=== PATIENT | female | born 1975 | race Caucasian/White ===

== ENCOUNTER 2021-04-22 02:46 | Inpatient (IN) | payer OTHER ==
[2021-04-22] MEDS ORDERED: Acetaminophen 325 MG Tab PO PRN ×2 (04:04→07:41)
[2021-04-22] MEDS ORDERED: Sodium Chloride 0.9% 10 ML Syringe FLUSH PRN (04:05)
[2021-04-22] MEDS ORDERED: Dexamethasone 4 MG/ML SDV IVPUSH SCH (04:15)
[2021-04-22] MEDS ORDERED: Potassium Chloride 20 MEQ Tab.ER PO ONE ×4 (04:22→17:00)
[2021-04-22] MEDS ORDERED: LORazepam 2 MG/ML SDV IVPUSH ONE (06:25)
[2021-04-22] MEDS ORDERED: Ondansetron 4 MG/2 ML SDV IV PRN (07:41)
[2021-04-22] MEDS ORDERED: Bisacodyl 5 MG Tab PO PRN (07:41)
[2021-04-22] MEDS ORDERED: Docusate Sodium 100 MG Cap PO PRN (07:41)
[2021-04-22] MEDS ORDERED: Acetaminophen/HYDROcodone 325-5 MG Tab PO PRN (07:41)
[2021-04-22] MEDS ORDERED: Morphine 2 MG/ML SYRINGE IVPUSH PRN (07:41)
[2021-04-22] MEDS ORDERED: Ondansetron 4 MG Tab.DIS PO PRN (07:41)
[2021-04-22] MEDS ORDERED: Benzonatate 100 MG Cap PO PRN (07:41)
[2021-04-22] MEDS ORDERED: Codeine/guaiFENesin 10-100 MG/5 ML Syrup 5 ML Cup PO PRN (07:41)
[2021-04-22] MEDS: Mupirocin Oint 22 GM Tube TOP SCH ×3 (08:34→21:56)
[2021-04-22] MEDS: Enoxaparin 40 MG/0.4 ML Syringe SUBCUT SCH (08:34)
[2021-04-22] MEDS ORDERED: REMDESIVIR 200 MG in Sodium Chloride 0.9% 250 ML IV ONE (17:00)
[2021-04-22] MEDS ORDERED: Melatonin 3 MG Tab PO PRN (22:19)
[2021-04-22] MEDS: LORazepam 2 MG/ML SDV IV PRN (22:34)
[2021-04-23] MEDS ORDERED: Potassium Chloride 20 MEQ Tab.ER PO ONE (09:10)
[2021-04-23] MEDS: Enoxaparin 40 MG/0.4 ML Syringe SUBCUT SCH (09:24)
[2021-04-23] MEDS: Mupirocin Oint 22 GM Tube TOP SCH ×3 (09:24→21:29)
[2021-04-23] MEDS: Dexamethasone 4 MG/ML SDV IVPUSH SCH (09:24)
[2021-04-23] MEDS: REMDESIVIR 100 MG in Sodium Chloride 0.9% 100 ML IV SCH (16:09)
[2021-04-23] MEDS: Levofloxacin/Dextrose 5%-Water 750 MG in Premix Bag 1 BAG IV SCH (21:22)
[2021-04-24] MEDS: Mupirocin Oint 22 GM Tube TOP SCH ×3 (08:17→20:08)
[2021-04-24] MEDS: LORazepam 2 MG/ML SDV IV PRN ×2 (08:24→13:29)
[2021-04-24] MEDS: Enoxaparin 40 MG/0.4 ML Syringe SUBCUT SCH (08:26)
[2021-04-24] MEDS: Dexamethasone 4 MG/ML SDV IVPUSH SCH (08:26)
[2021-04-24] MEDS ORDERED: Potassium Chloride 20 MEQ Tab.ER PO ONE ×3 (09:00→17:07)
[2021-04-24] MEDS: REMDESIVIR 100 MG in Sodium Chloride 0.9% 100 ML IV SCH (16:05)
[2021-04-24] MEDS: Levofloxacin/Dextrose 5%-Water 750 MG in Premix Bag 1 BAG IV SCH (20:07)
[2021-04-25] MEDS: LORazepam 2 MG/ML SDV IV PRN ×2 (06:27→23:17)
[2021-04-25] MEDS: Enoxaparin 80 MG/0.8 ML Syringe SUBCUT SCH ×2 (09:04→21:30)
[2021-04-25] MEDS: Dexamethasone 4 MG/ML SDV IVPUSH SCH (09:04)
[2021-04-25] MEDS: Mupirocin Oint 22 GM Tube TOP SCH ×3 (09:04→21:29)
[2021-04-25] MEDS ORDERED: Sodium Chloride 0.65% Nasal Spray 45 ML Bottle NAS PRN (09:21)
[2021-04-25] MEDS: REMDESIVIR 100 MG in Sodium Chloride 0.9% 100 ML IV SCH (17:22)
[2021-04-25] MEDS: Levofloxacin/Dextrose 5%-Water 750 MG in Premix Bag 1 BAG IV SCH (19:43)
[2021-04-26] MEDS: Enoxaparin 80 MG/0.8 ML Syringe SUBCUT SCH ×2 (08:59→20:17)
[2021-04-26] MEDS: Dexamethasone 4 MG/ML SDV IVPUSH SCH (08:59)
[2021-04-26] MEDS: Mupirocin Oint 22 GM Tube TOP SCH ×3 (08:59→20:17)
[2021-04-26] MEDS: REMDESIVIR 100 MG in Sodium Chloride 0.9% 100 ML IV SCH (18:00)
[2021-04-26] MEDS: Levofloxacin/Dextrose 5%-Water 750 MG in Premix Bag 1 BAG IV SCH (20:17)
[2021-04-27] MEDS: LORazepam 2 MG/ML SDV IV PRN (02:23)
[2021-04-27] MEDS: Dexamethasone 4 MG/ML SDV IVPUSH SCH (08:55)
[2021-04-27] MEDS: Enoxaparin 80 MG/0.8 ML Syringe SUBCUT SCH (08:55)
[2021-04-27] MEDS: Mupirocin Oint 22 GM Tube TOP SCH ×3 (12:24→21:20)
[2021-04-27] MEDS: Rivaroxaban 10 MG Tab PO SCH (18:27)
[2021-04-27] MEDS: Levofloxacin/Dextrose 5%-Water 750 MG in Premix Bag 1 BAG IV SCH (20:40)
[2021-04-27] MEDS ORDERED: Enoxaparin 40 MG/0.4 ML Syringe SUBCUT SCH (21:00)
[2021-04-28] MEDS ORDERED: Fluconazole/Normal Saline 200 MG in Premix Bag 1 BAG IV ONE (10:00)
[2021-04-28] MEDS: Mupirocin Oint 22 GM Tube TOP SCH ×3 (10:01→21:09)
[2021-04-28] MEDS: Dexamethasone 2 MG Tab PO SCH (10:02)
[2021-04-28] MEDS: Clotrimazole 10 MG Troche PO SCH ×3 (14:55→21:10)
[2021-04-28] MEDS: Rivaroxaban 10 MG Tab PO SCH (17:08)
[2021-04-28] MEDS: hydrOXYzine HCl 25 MG Tab PO PRN ×2 (17:08→21:41)
[2021-04-29] MEDS: hydrOXYzine HCl 25 MG Tab PO PRN (08:17)
[2021-04-29] MEDS: Dexamethasone 2 MG Tab PO SCH (08:17)
[2021-04-29] MEDS: Clotrimazole 10 MG Troche PO SCH ×5 (08:17→21:00)
[2021-04-29] MEDS: Mupirocin Oint 22 GM Tube TOP SCH ×3 (08:23→21:00)
[2021-04-29] MEDS ORDERED: Fluconazole 100 MG Tab PO SCH (09:00)
[2021-04-29] MEDS: Rivaroxaban 10 MG Tab PO SCH (16:54)
[2021-04-30] MEDS: Clotrimazole 10 MG Troche PO SCH ×2 (05:28→09:08)
[2021-04-30] MEDS: Dexamethasone 2 MG Tab PO SCH (09:08)
[2021-04-30] MEDS: hydrOXYzine HCl 25 MG Tab PO PRN (09:08)
[2021-04-30] MEDS: Mupirocin Oint 22 GM Tube TOP SCH (09:12)
== END 2021-04-30 15:30 | disposition home or self-care (01) | DRG 177 ==
LOC: JP.ED 02:46 → JP.2SS 05:56
PROVIDERS: ADMIT Hospitalist; ATTEND Internal Medicine
PROC: 8E0ZXY6 Isolation (ICD-10-PCS; principal; 2021-04-22)
PROC: XW033E5 Introduction of Remdesivir Anti-infective into Peripheral Vein, Percutaneous Approach, New Technology Group 5 (ICD-10-PCS; 2021-04-22)
PROC: 3E0333Z Introduction of Anti-inflammatory into Peripheral Vein, Percutaneous Approach (ICD-10-PCS; 2021-04-22)
PROC: XW0DXM6 Introduction of Baricitinib into Mouth and Pharynx, External Approach, New Technology Group 6 (ICD-10-PCS; 2021-04-23)
PROC: 5A0945A Assistance with Respiratory Ventilation, 24-96 Consecutive Hours, High Flow/Velocity Cannula (ICD-10-PCS; 2021-04-23)
PROC: 3E0DX3Z Introduction of Anti-inflammatory into Mouth and Pharynx, External Approach (ICD-10-PCS; 2021-04-28)
DX: U07.1 COVID-19 (principal); J12.82 Pneumonia due to coronavirus disease 2019; J96.01 Acute respiratory failure with hypoxia; B37.0 Candidal stomatitis; R74.01 Elevation of levels of liver transaminase levels; E87.6 Hypokalemia; T38.0X5A Adverse effect of glucocorticoids and synthetic analogues, initial encounter; Z88.0 Allergy status to penicillin; Z88.2 Allergy status to sulfonamides; Z91.018 Allergy to other foods; Z98.890 Other specified postprocedural states; Z87.891 Personal history of nicotine dependence
CPT/HCPCS: 36415; 36600; 71045; 71045-26; 80053; 80076; 82248; 82728; 82803; 83605; 83615; 84132; 84145; 85025; 85379; 86140; 93306; 99285; 99285-25; A9270-GY; J1100; J1450; J1650; J1956; J2060; J7050; J8540